=== PATIENT | female | born 1965 | race Two or more races ===

== ENCOUNTER 2019-04-29 06:11 | Day surgery (SDC) | payer OTHER ==
[~2019-04-29] VITALS: Ht 152.4 cm; Wt 59.2 kg
[2019-04-29] VITALS (9 sets, daily range): BP systolic 115–150; BP diastolic 56–80
--- NOTE | 2019-04-29 06:55 | NUR ---
RN MS OPENING NOTES RECEIVED PT FOR DAY SX, ALERT ORIENTEDX4. PT CONSENTS SIGNED, IV STARTED ON THE R AC 20G, ENDORSED TO DAY NURSE FOR RUSTY
--- NOTE | 2019-04-29 07:40 | NUR ---
MS RN OPENING NOTE RECEIVED PT IN BED, ALERT AND ORIENTED X4, DENIES CHEST PAIN, SOB, N/V, BREATHING IS EVEN AND UNLABORED ON ROOM AIR. RIGHT AC #20 G IS SALINE LOCKED WITHOUT REDNESS OR SWELLING. PT IS SCHEDULED TO SURGERY IN OR TODAY WITH , CONSENTS SIGNED AND PLACED IN CHART. OR CHECKLIST COMPLETED BY VINEYARD TENDER NURSE AND IN CHART. NPO STATUS MAINTAINED. ALL NEEDS ATTENDED TO, FAMILY MEMBER AT THE BEDSIDE. BED IS LOCKED AND IN LOWEST POSITION, SIDE RAILS UP X2, BED ALARM ON, CALL LIGHT AND POSSESSIONS WITHIN REACH.
--- NOTE | 2019-04-29 08:20 | NUR ---
MS RN NOTE PT OFF UNIT FOR SX.
[2019-04-29] MEDS ORDERED: EPINEPHRINE (1:1000) 1 MG/ML AMPUL ONE (08:56)
[2019-04-29] MEDS ORDERED: MIDAZOLAM HCL 2 MG/2ML VIAL ONE (09:32)
[2019-04-29] MEDS ORDERED: BUPIVACAINE 0.25% 75 MG/30 ML VIAL ONE (09:33)
[2019-04-29] MEDS ORDERED: DESFLURANE 240 ML BOTTLE IH ONE (10:23)
[2019-04-29] MEDS ORDERED: methylPREDNISolone ACETATE 80 MG/ML VIAL ONE (10:31)
[2019-04-29] MEDS ORDERED: BUPIVACAINE 0.5 % PF 150 MG/30 ML VIAL ONE (10:31)
[2019-04-29] MEDS ORDERED: FENTANYL PF 100MCG/2ML AMPUL ONE (10:51)
--- NOTE | 2019-04-29 11:30 | NUR ---
MS RN NOTE PT BACK ON UNIT FROM SURGERY WITH DR. YOO. VS MONITORING INITIATED PER PROTOCOL POST OP ORDERED NOTED AND INITIATED.
[2019-04-29] MEDS ORDERED: HYDR-4354 PO (11:56)
--- NOTE | 2019-04-29 12:00 | NUR ---
MS RN NOTE PT TOLERATED ICE CHIPS, WATER AND JUICE WITHOUT N/V.
--- NOTE | 2019-04-29 12:08 | NUR ---
MS RN NOTE PER ALLI GIRALDO FOR DR.SOBECK MOBLEY TO SEND PT HOME TODAY AFTER MEDICALLY STABLE.
--- NOTE | 2019-04-29 12:15 | NUR ---
MS RN NOTE PER PT YVONNE HE WILL SEE THE PT TODAY BETWEEN 1300 - 1330
--- NOTE | 2019-04-29 12:30 | NUR ---
MS RN NOTE PT AND REPORTED THAT PT VOIDED INTO TOILET WITHOUT ANY DIFFICULTY OR DISCOMFORT.
--- NOTE | 2019-04-29 13:30 | NUR ---
MS RN NOTE PER PHYSICAL THERAPIST ASHLEIGH RUSSELL EVALUATED AND IS SAFE TO GO HOME.
--- NOTE | 2019-04-29 14:00 | NUR ---
MS RN NOTE PT TOLERATED EGG SALAD SANDWICH WITHOUT N/V.
--- NOTE | 2019-04-29 15:20 | NUR ---
MS RECORDING ENGINEER NOTE PT DISCHARGED HOME IN MEDICALLY STABLE CONDITION VIA PRIVATE CAR, ACCOMPANIED BY KIKI. PT IS ALERT AND ORIENTED X4, DENIES CHEST PAIN, SOB, N/V, BREATHING IS EVEN AND UNLABORED ON ROOM AIR. NO ACUTE DISTRESS NOTED AT THIS TIME. NEUROVASCULAR STATUS INTACT, DRESSING NOTED AT THE LEFT SHOULDER TO BE CLEAN, DRY AND INTACT AT THIS TIME. SLING IN PLACE ORDERED. DISCHARGE PAPERWORK AND EDUCATION PROVIDED PER PROTOCOL INCLUDING TO FOLLOW UP WITH AT HIS OFFICE SCHEDULED TAKE MEDICATIONS NEEDED FOR PAIN PRESCRIBED , CAN TAKE OFF DRESSING FROM LEFT SHOULDER IN 48 HOURS CALL 911 OR RETURN TO THE NEAREST ER FOR CHEST PAIN, SHORTNESS OF BREATH, BLOOD IN THE EMESIS, STOOL OR URINE, UNILATERAL CALF SWELLING/PAIN/REDNESS, FEVER, CHANGE IN TEMPERATURE/FEELING OF THE LEFT ARM, INCREASED OR FOUL DRAINAGE FROM THE SURGICAL SITE. PT AND VERBALIZED UNDERSTANDING AND AGREEMENT. PER PT SHE HAS FOLLOW UP APPOINTMENT WITH ALREADY SCHEDULED FOR April AND SHE HAS ALREADY BEEN PROVIDED WITH A PRESCRIPTION FOR MEDICATIONS FROM 'S OFFICE FOR PAIN MANAGEMENT. RIGHT AC PERIPHERAL IV REMOVED WITH CATHETER TIP INTACT. THE NURSE CHANGE MANAGEMENT FACILITATOR ACCOMPANIED THE PT TO THE MAIN LOBBY VIA WHEELCHAIR WITHOUT INCIDENT.
== END 2019-04-29 16:00 | disposition home or self-care (01) ==
LOC: DS 06:11 → MEDSG2 06:13 → UNDOADMIN 06:13 → MEDSG2 06:42 → UNDODISIN 15:20 → DS 16:00
PROVIDERS: ATTEND Specialist
DX: M75.42 Impingement syndrome of left shoulder (principal); M75.82 Other shoulder lesions, left shoulder; M65.812 Other synovitis and tenosynovitis, left shoulder
CPT/HCPCS: 29822; 87081; 88304; 88311; 97116; 97161; 97530; A4217; A6253; A6402; J0171; J0690; J1040; J1100; J2250; J2704; J3010; J3490 ×3; G0378